=== PATIENT | male | born 1950 | race Caucasian/White ===

== ENCOUNTER 2024-12-28 08:15 | Observation (INO) ==
--- NOTE | 2024-12-17 12:20 | Anesthesiology Consultation ---
Date of Service December 17, 2024 Assessment & Plan (1) Encounter for pre-operative examination: - PCP clearance 12/25/24: "...reviewed the CMP recently performed by this patient...electrolytes, renal and hepatic function are all within normal limits and is no longer hyponatremic. No action is needed for replacement." - hyponatremia at 129. PCP clearance 12/22/24: "...scheduled for hernia surgery...sodium is low...continues to follow with [facility] stroke team every six months...did not find any definite causes of stroke. Reports Lamictal is prescribed by stroke team. They suspected possible seizures, though this was not definite diagnosis...denies any issue or concerns...does not see lung specialist, not interested in doing so at this time..." There is no comment on plan regarding hyponatremia-PCP office made aware we need PCP to comment on hyponatremia and if patient is cleared for surgery-awaiting response. - check BSG am DOS. - per pt and -pt has difficulty laying head completely flat/back, no limits with side to side movement. - neurosurgery office note 06/02/24: "...was referred to the stroke clinic for syncope and evaluated 10/12...unknown onset...seizures likely due to psychiatric medications (Wellbutrin, Abilify, Lexapro, Ativan)...continued need of psychiatric medication was started on Keppra 750 mg BID...transitioned to Lamictal...has not had any new confusion, staring or seizure like episode. no weakness, numbness, vision, valance or any other focal symptoms like stroke. Last seizure like episode was on 11/14/2021...MRI ja: unremarkable...TTE EF 55%, aortic valve mild calcification. Holter monitor Normal sinus and sinus tach rare PACs occasional PVCs loop recorder insertion...MRA neck: likely moderate MOLLY origin (read moderate to severe-motion artifact limited MRA) Mild LICA origin stenosis...since CDUS has been stable < 50% stenosis, would check annually...to note for future, vimpat risky with increased [place] 238 ms on all EKG. Cannot do Trileptal since last BMP with hyponatremia and pt not eating well...return in about 1 year..." - cardiology office visit 06/30/24: "...CAD in [place] artery mild by cath in 2017. PVCs...post PVC ablation in setting of syncope in 2021...carotid artery disease...implantable loop recorder did not demonstrate any significant arrhythmias including ventricular tachycardia or atrial fibrillation...will continue to monitor his carotid artery disease...annual echo...doing very well...follow up with him in 6 months..." - semaglutide instructions: Patient informed by PAT RN to stop 7 days prior to surgery. - Per knockdown man on 12/16/24: No known infectious disease contacts, current infectious disease symptoms in past 10 days or COVID positive test result in the past 30 days. Chart Review Chart Review: Acceptable Risk for Surgery and Patient NOT seen in Pre Admission Testing History Surgery Operation Date: 12/28/24 09:20 Proposed Procedures p Robotic Assisted Laparoscopic Left Inguinal Hernia Repair - Pérez Bauer DO Height/Weight Height: 6 ft 1 in Weight: 89.811 kg Allergies Allergy/AdvReac Type Severity Reaction Status Date / Time codeine Allergy Mild Abdominal Verified 12/28/24 08:12 Pain metformin Allergy Mild Abdominal Verified 12/28/24 08:12 Pain Medications Home Medications Medication Instructions Recorded Confirmed Last Taken aripiprazole 5 mg tablet (Abilify) 5 mg PO QAM 12/15/24 12/28/24 12/28/24 06:30 aspirin 81 mg tablet,delayed 81 mg PO QAM 12/15/24 12/28/24 12/20/24 release buspirone 5 mg tablet 5 mg PO BID 12/15/24 12/28/24 12/28/24 06:30 celecoxib 200 mg capsule (Celebrex) 200 mg PO BID 12/15/24 12/28/24 12/21/24 cetirizine 10 mg capsule (Zyrtec) 10 mg PO DAILY PRN Allergy Symptoms 12/15/24 12/28/24 12/07/24 escitalopram oxalate 20 mg tablet 20 mg PO HS 12/15/24 12/28/24 12/27/24 21:30 (Lexapro) esomeprazole magnesium 20 mg 20 mg PO QAM 12/15/24 12/28/24 12/27/24 09:30 capsule,delayed release (Nexium) fluticasone fur. 100 mcg-umeclid 1 inh inhalation QAM 12/15/24 12/28/24 12/28/24 06:30 62.5 mcg-vilant 25 mcg inhalat.powder (Trelegy Ellipta) lamotrigine 100 mg tablet 100 mg PO BID 12/15/24 12/28/24 12/28/24 06:30 lorazepam 1 mg tablet 1 mg PO BID 12/15/24 12/28/24 12/28/24 06:30 metoprolol succinate 25 mg 25 mg PO HS 12/15/24 12/28/24 12/27/24 21:30 tablet,extended release 24 hr (Toprol XL) multivitamin 1 tab PO QAM 12/15/24 12/28/24 12/21/24 prazosin 1 mg capsule 1 mg PO 12/15/24 12/28/24 12/27/24 21:30 rosuvastatin 40 mg tablet (Crestor) 40 mg PO QPM 12/15/24 12/28/24 12/27/24 17:00 semaglutide 0.25 mg or 0.5 mg (2 0.5 mg subcut Q7D 12/15/24 12/28/24 12/19/24 mg/3 mL) subcutaneous pen injector (Ozempic) turmeric root extract 500 mg 500 mg PO QPM 12/15/24 12/28/24 12/21/24 capsule ascorbic acid (vitamin C) 500 mg 500 mg PO QAM 12/16/24 12/28/24 12/21/24 tablet (Vitamin C) Active Medications Generic Name Dose Route Start Last Admin Trade Name Freq PRN Reason Stop Dose Admin Lactated Ringer's 1,000 mls @ 15 mls/hr 12/28/24 06:00 12/28/24 08:31 Lr IV 12/29/24 05:59 15 mls/hr .Q24H HOMERO Administration Lactated Ringer's 1,000 mls @ 75 mls/hr 12/28/24 06:00 12/28/24 08:31 Lr IV 12/28/24 18:00 Not Given .[id number] HOMERO Past Medical History Medical History Carotid stenosis < 50% stenosis CAD (coronary artery disease) mild non-obstructive on 2018 cath per cardio records Hx of gastroesophageal reflux (GERD) Anxiety and depression History of migraine reason for lamictal; f/u [facility] neurology "lamictal suspected possible seizures, though this was not definite diagnosis..." Neck problem per pt and -pt has difficulty laying head completely flat/back, no limits with side to side movement Status post placement of implantable loop recorder 2021, [facility] cardiology office; f/u [facility] cardio Implantable loop recorder present for recurrent episodes of loss of consciousness-placed in 2021 COPD (chronic obstructive pulmonary disease) Hx of epistaxis "major bleeds recently, sx 11/18/24" History of anemia Diabetes mellitus, type 2 HLD (hyperlipidemia) Past Family History Family History Mother Diabetes Hypertension Heart disease Father Cancer Heart disease Hypertension Grandmother Diabetes Past Surgical History Surgical History History of esophagogastroduodenoscopy (EGD) Hx of bilateral cataract extraction Status post myringotomy with tube placement of both ears History of cardiac ablation 2020, x2, for abn heart rhythm, [facility] [place]; f/u [facility] cardio History of nasal cauterization (11/18/24) H/O colonoscopy 2022 H/O shoulder surgery rt. History of laparoscopic cholecystectomy 1999 Dr. Rincon H/O inguinal hernia repair [facility] [address] Dr. Rincon [facility] [address] Dr. Rincon History of bowel resection 2008 Social History Smoking Status: Former smoker Smoking cigarettes per day: smoked 15 years Do You Dip or Chew Tobacco: No (for short time in 1981) Smoking End Date: 1981 Hx Alcohol Use: Yes Alcohol type: beer alcohol intake frequency: holidays/special occasions only Hx Substance Use: No substance use type: does not use Physical Exam Vital Signs Last Vital Signs Temp 36.8 C 12/28/24 08:15 Pulse 99 H 12/28/24 08:15 Resp 20 12/28/24 08:15 BP 152/76 H 12/28/24 08:15 Pulse Ox 98 12/28/24 08:15 O2 Del Method Room Air 12/28/24 08:15 Testing Laboratory Results 12/28/24 08:28 POC Glucose 122 H 12/04/24 WBC: 4.9 H/H: 15/ PLATELETS: 173,000 12/25/24 SODIUM: 136 POTASSIUM: 4.3 CHLORIDE: 101 CO2: 29 BUN: 11 CREATININE: 1.1 GLUCOSE: 112 Alk phos: 69 AST: 20 ALT: 24 12/04 A1c: 5.5% Electrocardiogram Date: 12/15/24 Sinus rhythm with 1st degree AV block, rate 80 bpm Echocardiogram Date: 06/30/24 EF 55% Mild LVH Grade I diastolic dysfunction Mildly dilated LA Moderate aortic regurgitation Moderate mitral valve regurgitation Mild tricuspid valve regurgitation Normal estimated pulmonary artery pressures; estimated PASP if 24 mmHg Other Testing Abdomen pelvis CT 12/09/24 Radiopaque staple line sigmoid colon with adjacent surgical clips again noted with uncomplicated large bowel diverticulosis. Otherwise no findings to indicate source of patient's symptoms Carotid doppler 06/02/24 Calcific plaque right ICA < 50% stenosis bilat ICAs, velocities have progressed since 05/30/2023 CDUS
[2024-12-28] MEDS ORDERED: MIDAZOLAM HCL 1 MG/ML 2ML VIAL ONE (08:26)
[2024-12-28] MEDS ORDERED: ROCURONIUM BROMIDE 10 MG/ML 5 ML VIAL IV ONE ×2 (08:28→12:23)
[2024-12-28] MEDS ORDERED: PROPOFOL IV EMULSION 10 MG/ML 20 ML VIAL IV ONE (08:28)
[2024-12-28] MEDS: LR 15ML/HR IV SCH (08:31)
[2024-12-28] MEDS: LACTATED RINGER'S 1,000 ML IV SCH (08:31)
[2024-12-28] MEDS ORDERED: ONDANSETRON INJ 2 MG/ML 2 ML VIAL IV PRN ×3 (09:19→17:22)
[2024-12-28] MEDS ORDERED: ATROPINE SULFATE 0.1 MG/ML 10ML SYR IV PRN (09:19)
--- NOTE | 2024-12-28 09:20 | History & Physical Bridge Note ---
Date of Service December 28, 2024 History & Physical Bridge Note I have examined the patient, reviewed the History & Physical and in the interval since the performance of the History & Physical I have noted the following changes of clinical significance: no changes noted. Pt presents for left inguial hernia repair. The consent is on the chart.
[2024-12-28] MEDS ORDERED: ONDANSETRON INJ 2 MG/ML 2 ML VIAL ONE (10:32)
[2024-12-28] MEDS ORDERED: PHENYLEPHRINE 100MCG/ML 5ML SYR ONE (10:33)
[2024-12-28] MEDS ORDERED: ePHEDrine sulfate 50 MG/5 ML SYR ONE (10:52)
[2024-12-28] MEDS ORDERED: SUGAMMADEX SODIUM 200 MG/2 ML VIAL IV ONE (11:22)
[2024-12-28] MEDS ORDERED: PHENYLEPHRINE HCL 10 MG/ML VIAL ONE (11:50)
[2024-12-28] MEDS ORDERED: KETOROLAC 30 MG/ML VIAL ONE (13:58)
[2024-12-28] MEDS: BUPIVACAINE 0.5 % 5 MG/1 ML MPF 30ML VIAL ONE (14:09)
--- NOTE | 2024-12-28 14:32 | Operative Report ---
PG Post Operative Report Pre & Post Diagnosis Operation Date: 12/28/24 09:20 Pre-Op Diagnosis: Left Inguinal Hernia Post-Op Diagnosis: Left Inguinal Hernia I identified the patient and participated in the time-out.: Yes Procedure Operation Date: 12/28/24 09:20 Actual Procedures p Robotic Assisted Laparoscopic Left Inguinal Hernia Repair with Mesh, Extensive Lysis of Adhesions(Not Applicable) - Pérez Pearce DO Surgeon Pérez Pearce DO Informatics Analyst TRISTEN Rosario Estimated Blood Loss 15 Findings See Below Adhesions, incisional hernia large left indirect inguinal hernia Specimens None Anesthesia Type General Complications No immediate complications Indications Patient with large left inguinal hernia causing symptoms Description of Procedure The patient was brought back to the operating room and placed on the operating room table in supine position. He was connected to cardiac and oxygen monitoring, supplemental O2 was provided and SCDs were applied to bilateral lower extremities. The patient was administered general anesthesia and a secure airway was established. The abdomen was prepped and draped in typical sterile fashion and a timeout was conducted. Local anesthetic was used anesthetize skin and subcutaneous tissues prior to making all incisions and all incisions were made with an 11 blade. Intra-abdominal access was gained using a Veress needle just superior to the umbilicus and this was confirmed with a saline drop test. CO2 insufflation was initiated pneumoperitoneum was established local pressure 15 mmHg. Once this pressure was reached, an 8 mm trocar was inserted using direct visualization with a 5 mm laparoscope and Optiview port. Immediately noted were adhesions to omentum and bowel at the midline inferior to the umbili cus down toward the pelvis. 2 additional 8 mm trocars inserted the right and left upper quadrants using direct visualization. The OR table was positioned in Trendelenburg position. The robot was deployed, docked, targeted and instruments were loaded. At the console, some adhesions were taken down and thought to be enough to access the peritoneum over the left lower abdomen. Some of this peritoneum was far already partially open secondary to lysis of adhesions. The peritoneum was further opened and extending the from a the mid abdomen to the ASIS laterally using an endoshears. The preperitoneal space was developed. Further lysis of adhesions with was performed to prohibit staying on the camera with motion. There was a small area on the small bowel that was adhesed to the anterior abdominal wall that appeared to have some serosal disruption. There was not a full-thickness injury. This was oversewn using Lembert technique with two 3-0 silk sutures. The preperitoneal space was completely opened over the right lower abdomen extending down to the pelvis to René's ligament medially and extending well below this ligament. A very large fat-containing left inguinal hernia was reduced. There was significant preperitoneal fat adhesed to the peritoneum around all of the structures Took some time to dissect this peritoneum away and this connected the preperitoneal fatty attachments to the muscles anteriorly. There was fine bleeding of the perivascular fatty tissue throughout dissection. Some bleeding that did not stop on its own was controlled using cautery of the vessels to the fatty tissues that could be readily seen. Once the myopectineal orifice was completely reduced, a 10 x 15 cm ProGrip mesh was inserted extending from the mid aspect of René's ligament toward the ASIS. The peritoneum was closed using the large amount of fatty tissue that was reduced from the cord structures and the remaining structures and the myopectineal orifice to completely close the defect to tether the previously herniated tissue to avoid the possibility of this being reintroduced to the inguinal space. The testicles were confirmed to be contained in the scrotum at the end of the procedure. The instruments were removed, the robot was docked and cleared from the patient. The OR table was returned to the neutral position. CO2 insufflation was discontinued and excess pneumoperitoneum was evacuated from the intra-abdominal space and as best as possible from the preperitoneal space. The trocars were removed. Additional local anesthetic was used anesthetize the skin and subcutaneous tissues at each incision site. The incisions were all closed using 4-0 Monocryl suture. The abdomen was wiped clean with a saline soaked lap pad and dried. The incisions were further sealed with Dermabond. The patient tolerated the procedure well. He was awakened from anesthesia, the secure airway was removed and he was transferred to recovery in stable condition. I attest to the content of the Intraoperative Record and any orders documented therein. Any exceptions are noted below.
--- NOTE | 2024-12-28 14:44 | Anesthesiology Progress Note ---
Date of Service December 28, 2024 Anesthesia Post Procedure Vital Signs Vital Signs: Temp Pulse Pulse Resp BP Pulse Ox O2 Del Method 12/28/24 14:35 84 14 144/65 H 99 Oxymask 12/28/24 14:25 82 22 143/66 H 100 Oxymask 12/28/24 14:15 36.0 C L 99 H 16 140/63 100 Oxymask 12/28/24 08:15 36.8 C 99 H 20 152/76 H 98 Room Air O2 Flow Rate 12/28/24 14:35 4 12/28/24 14:25 4 12/28/24 14:15 6 12/28/24 08:15 Pain Intensity Bilateral Leg: Pain Intensity: 5 Abdomen: Pain Intensity: 7 Transfer of Care Handoff Completed per policy Notes Mental Status: alert / awake / arousable Patient Amnestic to Procedure: Yes Nausea / Vomiting: adequately controlled Pain: adequately controlled Airway Patency, RR, SpO2: stable & adequate BP & HR: stable & adequate Hydration State: stable & adequate Anesthetic Complications: no major complications apparent
[2024-12-28] MEDS: ACETAMINOPHEN 325 MG TAB PO PRN (15:32)
[2024-12-28] MEDS ORDERED: LIDOCAINE 1% LOCAL 20 ML VIAL INFIL PRN (17:22)
[2024-12-28] MEDS ORDERED: OXYTOCIN 30 UNITS/NSS 30 UNITS/500 ML BAG IV PRN (17:22)
[2024-12-28] MEDS: HYDROmorphone INJ 0.5 MG/0.5 ML SYR IV PRN (17:59)
[2024-12-28] MEDS ORDERED: CARBOHYDRATES FOR HYPOGLYCEMIA PO PRN (20:01)
[2024-12-28] MEDS ORDERED: DEXTROSE 50% 50 ML SYRINGE IV PRN (20:01)
[2024-12-28] MEDS ORDERED: GLUCOSE 10 TAB/TUBE PO PRN (20:01)
[2024-12-28] MEDS ORDERED: GLUCOSE 40% GEL 15 GM TUBE PO PRN (20:01)
[2024-12-28] MEDS ORDERED: PHARMACY GLYCEMIC MGMT CONSULT PRN (20:01)
[2024-12-28] MEDS ORDERED: GLUCAGON FOR INJ 1 MG VIAL SQ PRN (20:01)
[2024-12-28] MEDS: INSULIN ASPART PER UNIT CHARGE SC SCH (21:36)
[2024-12-28] MEDS: MoRPHine SULFATE 4 MG/ML 1 ML CARP\\VIAL IV PRN (21:43)
[2024-12-28] MEDS: SODIUM CHLORIDE 0.9% 1,000 ML IV SCH (21:50)
[2024-12-28] MEDS: PRAZOSIN HCL 1 MG CAP PO STA (22:53)
[2024-12-28] MEDS: busPIRone 5 MG TAB PO STA (22:53)
[2024-12-28] MEDS: ESCITALOPRAM OXALATE 20 MG TAB PO STA (22:53)
[2024-12-28] MEDS: LORazepam 1 MG TAB PO STA (22:53)
[2024-12-28] MEDS: ROSUVASTATIN CALCIUM 20 MG TAB PO STA (22:53)
[2024-12-28] MEDS: METOPROLOL SUCC 25MG EXT REL TAB PO STA (22:54)
[2024-12-28] MEDS: CeleBREX 200 MG CAP PO STA (22:54)
[2024-12-29] MEDS: CeleBREX 200 MG CAP PO SCH (08:00)
[2024-12-29] MEDS: ASCORBIC ACID 500 MG TAB PO SCH (08:00)
[2024-12-29] MEDS: busPIRone 5 MG TAB PO SCH (08:00)
[2024-12-29] MEDS: ARIPiprazole 5 MG TAB PO SCH (08:00)
[2024-12-29] MEDS: LORazepam 1 MG TAB PO SCH (08:08)
--- NOTE | 2024-12-29 12:40 | Pharmacy Report ---
Glycemic Ortho Sign Off Note - Date of Service December 29, 2024 - Scope Glycemic Pharmacist consulted for glycemic control and to write orders per [facility] inpatient glycemic control protocol. - Objective Accuchecks BSG (last 24hrs):: 12/28/24 12/28/24 12/29/24 14:22 20:24 07:47 POC Glucose 154 H 119 H 111 H 12/29/24 11:37 POC Glucose 92 - Assessment * Low stress weight based insulin dosing appropriate since patient has minimal risk factors for insulin resistance (i.e. no steroids). * Appropriate to DC insulin and resume outpatient antidiabetic regimen at discharge * Goal is to maintain BSGs <200 mg/dl (ideally <150 mg/dl) to prevent post op complications - Plan For Inpatient Glycemic Control * Basal insulin * Not needed based on A1c, pre-op BSGs, and minimal risk factors for insulin resistance * Bolus insulin * Utilize low stress weight based NovoLog parameters per scale ACHS * Pharmacy has entered glycemic orders and is signing off of the glycemic consult. We will no longer be making adjustments to inpatient regimen. Please feel free to re-consult if needed. Thank you.
--- NOTE | 2024-12-29 14:31 | Surgery Progress Note ---
<Statement entered by Pérez Pearce DO - 12/30/24 06:44> I have seen and examined this patient and i agree w this assessment and plan. surgical site appears appropriate. Will discharge when patient able to be more steady on his feet to ambulate with an assist device. Date of Service December 29, 2024 Assessment & Plan (1) Left inguinal hernia: Plan: POD#1 robotic left inguinal hernia repair with lysis of adhesions Vitals stable incisions are c/d/i; no significant swelling noted still decent amount of post op pain which is limiting him recommend ongoing pain control, ice (he is using currently) will add patient's stool softener per his request. he is on majority of his home meds encourage OOB and pulmonary toilet; showed patient how to use the IS will plan on keeping one more night for pain control and ensure he feels steady on his feet before discharge Admission and Anticipated Discharge Date Admission Date: December 28, 2024 Subjective Patient reports pain at operative site in the left inguinal region. He is voiding and passing flatus. He feels like he has a little bit of trouble voiding unless he gets pain tomorrow. He is tolerating a diet, no n/v. When he gets out of bed he feels like he needs to hold his groin. been using a rolling walker Physical Exam Physical Exam: awake/alert, no distress Constitutional: well developed and well nourished Respiratory: normal respiratory effort Gastrointestinal (Abdomen): Inspection/Auscultation: abdomen not distended Percussion/Palpation: + abdomen tender (tender mostly in L inguinal region) and abdomen soft incisions are c/d/i. there is no significant swelling in the inguinal or scrotum region Results & Data Vital Signs (Past 12 Hours) Vital Signs Temp Pulse Resp BP Pulse Ox O2 Del Method 12/29/24 07:15 Room Air 12/29/24 07:13 98.8 F 81 17 104/63 96 Room Air 12/29/24 03:07 97.5 F L 86 16 106/63 95 Room Air PG Care Time/CCT Total # of Minutes Spent Total Time Spent with Patient: Total time spent is greater than 50% in coordination of care (as documented) at patient's floor/unit and/or counseling patient: Coding Level of Care Code 64142 Post Operative Follow-Up Diagnoses Left inguinal hernia K40.90
[2024-12-29 15:30] VITALS: RESP 16
[2024-12-29] MEDS: ACETAMINOPHEN 1,000 MG/100 ML VIAL IV SCH (16:00)
[2024-12-29] MEDS: DOCUSATE SODIUM 100 MG CAP PO SCH (21:09)
[2024-12-29] MEDS: lamoTRIgine 100 MG TAB PO SCH (21:10)
[2024-12-29] MEDS: ESCITALOPRAM OXALATE 20 MG TAB PO SCH (21:10)
[2024-12-29] MEDS: ROSUVASTATIN CALCIUM 20 MG TAB PO SCH (21:11)
[2024-12-29] MEDS: PRAZOSIN HCL 1 MG CAP PO SCH (21:11)
[2024-12-29] MEDS: METOPROLOL SUCC 25MG EXT REL TAB PO SCH (21:14)
[2024-12-30] VITALS: PULSE 77
[2024-12-30 07:55] VITALS: BP 104/62; TEMP 98.1; O2SAT 95
--- NOTE | 2024-12-30 10:40 | Surgery Progress Note ---
<Statement entered by Pérez Pearce, DO - 12/31/24 13:05> I have discussed this case with the surgical PA and I agree with this plan. Date of Service December 30, 2024 Assessment & Plan (1) Left inguinal hernia: Plan: POD#2 robotic left inguinal hernia repair with lysis of adhesions Vitals stable incisions are c/d/i; no significant swelling noted he is feeling better than yesterday regards to pain control He is tolerating a diet and passing gas and voiding Pt will be prescribed and sent home with a rolling walker for weakness until he gains her strength back fully post operatively Plan for discharge to home today, continue icing prn. D/c instructions reviewed F/u in the office with Dr. Pearce in 1-2 weeks Admission and Anticipated Discharge Date Admission Date: December 28, 2024 Subjective Patient seems to be feeling better than yesterday. His pain is tolerable with oral pain meds. He is voiding. He is passing gas. Ambulating but uses some assistance with the rolling walker. Physical Exam Physical Exam: awake/alert, no distress Constitutional: well developed and well nourished Respiratory: normal respiratory effort Gastrointestinal (Abdomen): Inspection/Auscultation: abdomen not distended Percussion/Palpation: + abdomen tender (improved ttp mostly in L inguinal region) and abdomen soft mild bruising in the scrotum noted Results & Data Vital Signs (Past 12 Hours) Vital Signs Temp Pulse Resp BP Pulse Ox O2 Del Method 12/30/24 07:00 98.1 F 77 16 104/62 95 Room Air 12/29/24 23:59 97.9 F 77 16 120/68 94 Room Air PG Care Time/CCT Total # of Minutes Spent Total Time Spent with Patient: Total time spent is greater than 50% in coordination of care (as documented) at patient's floor/unit and/or counseling patient: Coding Level of Care Code 15367 Post Operative Follow-Up Diagnoses Left inguinal hernia K40.90
--- NOTE | 2025-01-01 15:02 | Discharge Summary ---
Date of Service December 30, 2024 Principal Diagnosis robotic left inguinal hernia repair Discharge Exam awake/alert, no distress Constitutional well developed and well nourished Respiratory normal respiratory effort Gastrointestinal (Abdomen) Inspection/Auscultation: abdomen not distended Percussion/Palpation: + abdomen tender (improved ttp mostly in L inguinal region) and abdomen soft incisions are c/d/i with dermabond Discharge Data Allergies Allergy/AdvReac Type Severity Reaction Status Date / Time codeine Allergy Mild Abdominal Verified 12/28/24 08:12 Pain metformin Allergy Mild Abdominal Verified 12/28/24 08:12 Pain Procedures Performed Operation Date: 12/28/24 09:20 Actual Procedures p Robotic Assisted Laparoscopic Left Inguinal Hernia Repair with Mesh, Extensive Lysis of Adhesions(Not Applicable) - Pérez Pearce, Hospital Course (1) Left inguinal hernia: This is a 74y M who presented to the [facility] on 12/28/24 for a robotic left inguinal hernia repair with Dr. Pearce. The patient tolerated the procedure well, see op note for full details. He recovered in the PACU but was having issues with pain control therefore he was admitted for observation. His pain was managed with prn medications. Diet advanced as tolerated. Initially he had some issues with voiding, but ultimately was able to do so and continue to do so. He required a rolling walker for ambulation for some post op weakness and pain with walking. His incisions remained clean dry and intact and he utilized ice packs appropriately for pain and symptom control. On POD#2 the patient was feeling better and was ultimately stable for discharge to home. Discharged instructions were provided and he was asked to follow up in the office in 2 weeks with the surgeon. Total Time Total Time Spent Total Time Spent (In Minutes): 15 Discharge Plan Discharge Items Patient Disposition: Home - Self-Care Reason For Visit: LEFT INGUINAL HERNIA REPAIR Discharge Diagnosis: left inguinal hernia repair Activity: Per Instructions section Lifting: No more than 10 pounds Bathing Comment: may shower; no soaking in tubs/pools x 2 weeks Exercise/Sports: Wait until after follow-up appointment Driving/Machine Use: wait at least [address] and no driving while on narcotics for pain Non-emergency contact: Surgeon Call non-emergency contact if: you have any medication questions, your symptoms worsen, your pain is worsening, you have a fever, your temperature is above 101.5, your wound has increased redness, your wound has increased drainage and your wound pain has increased Follow-up/Referrals: Soria-Pérez Bauer DO [Physician] - 01/19/25 9:10 am (please call to schedule follow up in the office in 2 weeks ) Shyla Delgado PA-C [Primary Care Provider] - Diet: Regular Addtl Attending Provider Instructions: SPECIAL CARE INSTRUCTIONS: * You have skin glue over your incisions called dermabond. you may shower with this on. It will tend to dissolve and fall off within a couple weeks. Do not pick at the skin glue * You may ice your groin on and off alternating every 20 minutes as needed to help with pain and swelling over the next few days. * You may shower 12/29 . NO soaking in pools or baths for 2 weeks * No lifting greater than 10lbs. No strenuous exercise until cleared by surgeon. Light walking is accepted. * No driving while taking narcotic pain medication; wait at least 1 week * No drinking alcohol while taking narcotic pain medication * May use Ibuprofen/Tylenol over the counter for pain as tolerated. Do not exceed 3grams of Tylenol per 24 hours * Expect some swelling and bruising. * Diet- you may resume your regular diet Call your doctor if: * Temperature above 101 degrees, nausea/vomiting, fever/chills * Pain not relieved by pain medicine ordered * There is increased drainage or redness from any incision * You have any unanswered questions or concerns [phone]. FOLLOW UP VISIT: If not already scheduled, please call the office for a follow-up visit. Office Pending Studies at Discharge: No Stand-Alone Forms: Anesthesia/Sedation, Adult, [facility] Medications and DC Order Prescriptions: New oxycodone 5 mg tablet 5 - 10 mg PO .[id number] PRN (Reason: pain, for initial therapy, max 6 tabs per day) Qty: 15 0RF Continued lorazepam 1 mg tablet 1 mg PO BID aripiprazole [Abilify] 5 mg tablet 5 mg PO QAM buspirone 5 mg tablet 5 mg PO BID rosuvastatin [Crestor] 40 mg tablet 40 mg PO QPM Patient Comments: @1600 escitalopram oxalate [Lexapro] 20 mg tablet 20 mg PO HS esomeprazole magnesium [Nexium] 20 mg capsule,delayed release(DR/EC) 20 mg PO QAM lamotrigine 100 mg tablet 100 mg PO BID metoprolol succinate [Toprol XL] 25 mg tablet extended release 24 hr 25 mg PO HS prazosin 1 mg capsule 1 mg PO HS Zyrtec 10 mg capsule 10 mg PO DAILY PRN (Reason: Allergy Symptoms) celecoxib [Celebrex] 200 mg capsule 200 mg PO BID multivitamin Tablet 1 tab PO QAM turmeric root extract 500 mg capsule 500 mg PO QPM Ozempic 0.25 mg or 0.5 mg (2 mg/3 mL) pen injector 0.5 mg subcut Q7D Patient Comments: saturday Trelegy Ellipta 100-62.5-25 mcg blister with device 1 inh inhalation QAM aspirin 81 mg tablet,delayed release (DR/EC) 81 mg PO QAM ascorbic acid (vitamin C) [Vitamin C] 500 mg Tablet 500 mg PO QAM Discharge Orders: Discharge Order (Routine); Ordered 12/30/24 Ordered By: Hortensia Fonseca/Other Patient Handouts: DVT Post Op Prevention Admission Data Admit Date/Time: 12/28/24 17:22 Attending Provider: Pérez Pearce Admit Provider: Pérez Pearce Primary Care Provider: Shyla Delgado Other Interventions: Discharge Summary Assessment (RN) Last Done: 12/30/24 13:42 Coding Level of Care Code 21628 IN/OBS DISCH 30 MIN/LESS Diagnoses Left inguinal hernia K40.90
== END 2024-12-30 14:12 | disposition home or self-care (01) ==
LOC: ASU 08:15 → 3E 08:15
DX: E11.9 Type 2 diabetes mellitus without complications; I34.0 Nonrheumatic mitral (valve) insufficiency; Z88.8 Allergy status to other drugs, medicaments and biological substances; I10 Essential (primary) hypertension; Z79.82 Long term (current) use of aspirin; F31.9 Bipolar disorder, unspecified; K40.90 Unilateral inguinal hernia, without obstruction or gangrene, not specified as recurrent; I25.10 Atherosclerotic heart disease of native coronary artery without angina pectoris; J44.9 Chronic obstructive pulmonary disease, unspecified; Z79.899 Other long term (current) drug therapy; Z87.891 Personal history of nicotine dependence; F43.10 Post-traumatic stress disorder, unspecified; Z79.85 Long-term (current) use of injectable non-insulin antidiabetic drugs; Z88.5 Allergy status to narcotic agent; F17.220 Nicotine dependence, chewing tobacco, uncomplicated